=== PATIENT | male | born 1990 ===

== ENCOUNTER 2017-07-11 22:44 | Emergency (ER) | payer OTHER ==
[2017-07-11 23:26] LABS: ABS Basophils 0 10^3/ul (0-0.2); ABS Eosinophils 0.1 10^3/ul (0-0.6); ABS Lymphocytes 0.4 10^3/ul (1.0-4.8); ABS Monocytes 0.5 10^3/ul (0-0.8); ABS Neutrophils 7.9 10^3/ul (1.5-7.7); ABS Nucleated RBC 0 10^3/ul; Eosinophil % 1.2 % (0-6); Hematocrit 49 % (42-52); Hemoglobin 17.4 g/dl (14.0-18.0); Lymphocyte % 4.5 % (25-47); Mean Corpuscular HGB Conc 36 g/dl (31-36); Mean Corpuscular Hemoglobin 31 pg (27-31); Mean Corpuscular Volume 88 fL (80-94); Mean Platelet Volume 8.6 um3 (7.4-10.4); Nucleated Red Blood Cells % 0.2; Platelet Count 129 10^3/ul (150-450); Red Blood Count 5.59 10^6/ul (4.0-5.4); Red Cell Distribution Width 13 % (10.5-15)
[2017-07-11] MEDS ORDERED: Ondansetron ODT TAB* 4 MG PO ONE (23:33)
[2017-07-11 23:39] LABS: EGFR Non-African American 61.8 (>60)
[2017-07-12] MEDS ORDERED: O ndansetron ODT 4MG 2TAB PRPK 4 MG PAK PO ONE (00:30)
--- NOTE | 2017-07-12 00:30 | ED ---
GI/ HPI - HPI Summary HPI Summary: 26-year-old male presents with vomiting blood today. He states he's been vomiting a couple times today. He states that he had an episode where he vomited some blood which was just some streaks. He denies any history of ibuprofen use. He only drinks once a week. He's never had this symptoms before. He denies any history of GERD. Denies any fevers. He has occasional mild epigastric pain. Denies any diarrhea. States the vomited once in ED and now is no longer nauseous with no blood in the vomit. He states he did not eat anything different. No one else is sick. He denies any chest pain shortness breath. Denies any cough. - History of Current Complaint Chief Complaint: EDNauseaVomitDiarrh Time Seen by Provider: 07/12/17 00:22 Stated Complaint: VOMITING BLOOD Pain Intensity: 2 - Allergy/Home Medications Allergies/Adverse Reactions: Allergies Allergy/AdvReac Type Severity Reaction Status Date / Time Penicillins Allergy Rash And Verified 07/11/17 23:00 Itching Home Medications: Home Medications NK [No Home Medications Reported] 07/12/17 [History Confirmed 07/12/17] PMH/Surg Hx/FS Hx/Imm Hx Infectious Disease History: No Infectious Disease History: Denies: Traveled Outside the [place] in Last 30 Days Review of Systems Negative: Fever Negative: Chest Pain Negative: Shortness Of Breath Positive: Abdominal Pain, Vomiting, Nausea, Other - blood in vomit. Negative: Diarrhea All Other Systems Reviewed And Are Negative: Yes Physical Exam Triage Information Reviewed: Yes Vital Signs On Initial Exam: Initial Vitals Temp Pulse Resp BP Pulse Ox 99.2 F 105 16 118/83 99 07/11/17 22:57 07/11/17 22:57 07/11/17 22:57 07/11/17 22:57 07/11/17 22:57 Vital Signs Reviewed: Yes Appearance: Positive: Well-Appearing Skin: Positive: Warm, Dry Head/Face: Positive: Normal Head/Face Inspection Eyes: Positive: Normal, EOMI, DEMETRIS, Conjunctiva Clear ENT: Positive: Normal ENT inspection, Pharynx normal, TMs normal Respiratory/Lung Sounds: Positive: Clear to Auscultation, Breath Sounds Present Cardiovascular: Positive: Normal, RRR Abdomen Description: Positive: Nontender, Soft Bowel Sounds: Positive: Present Musculoskeletal: Positive: Normal Neurological: Positive: Normal Psychiatric: Positive: Normal Diagnostics - Vital Signs Vital Signs Temp Pulse Resp BP Pulse Ox 07/11/17 22:57 99.2 F 105 16 118/83 99 - Laboratory Lab Results: Lab Results 07/11/17 07/11/17 07/11/17 Range/Units 23:12 23:12 23:12 WBC 9.0 (3.5-10.8) 10^3/ul RBC 5.59 H (4.0-5.4) 10^6/ul Hgb 17.4 (14.0-18.0) g/dl Hct 49 (42-52) % MCV 88 (80-94) fL MCH 31 (27-31) pg MCHC 36 (31-36) g/dl RDW 13 (10.5-15) % Plt Count 129 L (150-450) 10^3/ul MPV 8.6 (7.4-10.4) um3 Neut % (Auto) 88.2 H (38-83) % Lymph % (Auto) 4.5 L (25-47) % [place] % (Auto) 5.8 (0-7) % Eos % (Auto) 1.2 (0-6) % Baso % (Auto) 0.3 (0-2) % Absolute Neuts (auto) 7.9 H (1.5-7.7) 10^3/ul Absolute Lymphs (auto) 0.4 L (1.0-4.8) 10^3/ul Absolute Monos (auto) 0.5 (0-0.8) 10^3/ul Absolute Eos (auto) 0.1 (0-0.6) 10^3/ul Absolute Basos (auto) 0 (0-0.2) 10^3/ul Absolute Nucleated RBC 0 10^3/ul Nucleated RBC % 0.2 Sodium 139 (139-145) mmol/L Potassium 4.1 (3.5-5.0) mmol/L Chloride 102 (101-111) mmol/L Carbon Dioxide 25 (22-32) mmol/L Anion Gap 12 H (2-11) mmol/L BUN 27 H (6-24) mg/dL Creatinine 1.39 H (0.67-1.17) mg/dL Est GFR ( Amer) 79.4 (>60) Est GFR (Non-Af Amer) 61.8 (>60) BUN/Creatinine Ratio 19.4 (8-20) Glucose 117 H (70-100) mg/dL Lactic Acid 0.8 (0.5-2.0) mmol/L Calcium 9.6 (8.6-10.3) mg/dL Total Bilirubin 1.30 H (0.2-1.0) mg/dL AST 17 (13-39) U/L ALT 28 (7-52) U/L Alkaline Phosphatase 44 (34-104) U/L C-Reactive Protein 10.18 H (< 5.00) mg/L Total Protein 7.6 (6.4-8.9) g/dL Albumin 4.7 (3.2-5.2) g/dL Globulin 2.9 (2-4) g/dL Albumin/Globulin Ratio 1.6 (1-3) Lipase 17 (11.0-82.0) U/L Result Diagrams: 07/11/17 23:12 07/11/17 23:12 Lab Statement: Any lab studies that have been ordered have been reviewed, and results considered in the medical decision making process. GIGU Course/Dx - Course Course Of Treatment: 26-year-old male presents with vomiting blood today. He states he's been vomiting a couple times today. He states that he had an episode where he vomited some blood which was just some streaks. He denies any history of ibuprofen use. He only drinks once a week. He's never had this symptoms before. He denies any history of GERD. Denies any fevers. He has occasional mild epigastric pain. Denies any diarrhea. States the vomited once in ED and now is no longer nauseous with no blood in the vomit. He states he did not eat anything different. No one else is sick. He denies any chest pain shortness breath. Denies any cough. On exam nontender abdomen. Lab work within normal limits. We'll give nausea medication. Told to take Pepcid. Patient understands and agrees with plan. - Diagnoses Differential Diagnoses - Male: Esophagitis/Gastritis, Gastroenteritis (Viral), Vomiting Provider Diagnoses: Vomiting blood Discharge - Sign-Out/Discharge Documenting (check all that apply): Discharge/Admit/Transfer - Discharge Plan Condition: Good Disposition: HOME Patient Education Materials: Acute Nausea and Vomiting (ED) Referrals: [facility] - Charles REYES [Primary Care Provider] - Additional Instructions: Can take Zofran every 6 hours as needed for nausea Take take pepcid twice a day for stomach pain Drink small amounts of fluid as tolerated When able to eat follow BRAT diet: Bananas, rice, applesauce, toast Take Tylenol for pain as needed every 6 hours Follow up with primary within 5 days Return to ED if develop fever that does not respond to Tylenol or ibuprofen, severe abdominal pain, or any new or worsening symptoms - Billing Disposition and Condition Condition: GOOD Disposition: HOME
[2017-07-12 00:58] VITALS: BP 118/89
== END 2017-07-12 00:55 | disposition home or self-care (01) ==
LOC: ED 22:44
DX: K92.0 Hematemesis (principal); R11.2 Nausea with vomiting, unspecified; R10.9 Unspecified abdominal pain
CPT/HCPCS: 36415; 80053; 83605; 83690; 85025; 86140; 99282; A9270-GY

== ENCOUNTER 2018-09-05 02:16 | Emergency (ER) | payer OTHER ==
--- NOTE | 2018-09-05 02:23 | ED ---
Substance Abuse/Use - HPI Summary HPI Summary: This pt is a 28 y/o male presenting to [facility] via policewoman for substance use. Police report they were patrolling around the [place] when they saw the pt trying to fight with some people. Patient also attempted to fight with the police. Patient presents to the ED in handcuffs. He is uncooperative and combative. HPI IS LIMITED DUE TO LEVEL 5 CAVEAT - pt is uncooperative and combative - History Of Current Complaint Stated Complaint: 2209 PER EMS Hx Obtained From: Other: - Police Hx From Patient Unobtainable Due To: Other - LEVEL 5 CAVEAT - pt is uncooperative and combative Ingestion History: Type/Name Of Drug - alcohol Severity Currently: Severe Character: Stuporous Aggravating Factor(s): Other - unknown Alleviating Factor(s): Other - unknown Associated Signs And Symptoms: Intentional Ingestion - Allergies/Home Medications Allergies/Adverse Reactions: Allergies Allergy/AdvReac Type Severity Reaction Status Date / Time Penicillins Allergy Rash And Verified 07/11/17 23:00 Itching PMH/Surg Hx/FS Hx/Imm Hx Previously Healthy: No - Unknown due to level 5 caveat - uncooeprative - Immunization History Date of Tetanus Vaccine: utd Date of Influenza Vaccine: none - Family History Known Family History: Positive: Unknown - LEVEL 5 CAVEAT - pt is uncooperative - Social History Alcohol Use: Weekly Alcohol Amount: once a week Substance Use Type: Reports: None Smoking Status (MU): Former Smoker Review of Systems - ROS Summary Review of Systems Summary: ROS IS LIMITED DUE TO LEVEL 5 CAVEAT - pt is uncooperative and combative Negative: Fever Psychological: Other - POSITIVE: combative All Other Systems Reviewed And Are Negative: No Physical Exam - Summary Physical Exam Summary: VITAL SIGNS: Reviewed. GENERAL: Patient is a well-developed and nourished male. HEAD AND FACE: No signs of trauma. No ecchymosis, hematomas or skull depressions. No sinus tenderness. EYES: PERRLA, EOMI x 2, No injected conjunctiva, no nystagmus. EARS: Hearing grossly intact. Ear canals and tympanic membranes are within normal limits. MOUTH: Oropharynx within normal limits. NECK: Supple, trachea is midline, no adenopathy, no JVD, no carotid bruit, no c- spine tenderness, neck with full ROM. CHEST: Symmetric, no tenderness at palpation LUNGS: Clear to auscultation bilaterally. No wheezing or crackles. CVS: Regular rate and rhythm, S1 and S2 present, no murmurs or gallops appreciated. ABDOMEN: Soft, non-tender. No signs of distention. No rebound no guarding, and no masses palpated. Bowel sounds are normal. EXTREMITIES: FROM in all major joints, no edema, no cyanosis or clubbing. NEURO: Alert and oriented x 3. No acute neurological deficits. SKIN: Dry and warm Triage Information Reviewed: Yes Vital Signs Reviewed: Yes Completion Of Physical Exam Limited Due To: Level 5 - pt is uncooperative Diagnostics - Laboratory Result Diagrams: 09/05/18 03:00 09/05/18 03:00 Lab Statement: Any lab studies that have been ordered have been reviewed, and results considered in the medical decision making process. - CT Brain CT CT Interpretation Completed By: Radiologist Summary of CT Findings: IMPRESSION: No acute intracranial abnormality. Dr. Hinds has reviewed this report. Re-Evaluation - Re-Evaluation First Eval Re-Evaluation Time: 02:26 Comment: After handcuffs were removed, pt became combative. Pt will be chemically restrained. Second Eval Re-Evaluation Time: 02:35 Comment: Pt is yelling and being combative. Will administer 300 mg Ketamine IM. Course/Dx - Course Assessment/Plan: Pt is a 28 y/o male presenting to [facility] via policewoman for substance use. Police report they were patrolling around the [facility] when they saw the pt trying to fight with some people. Patient also attempted to fight with the police. Patient presents to the ED in handcuffs. After handcuffs were removed pt became combative. Pt was given Ativan, Haldol, and Benadryl as chemical restraint. He then began yelling and was more combative. Pt was given Ketamine IM. Blood work was obtained. Serum alcohol of 317. Brain CT shows no acute intracranial abnormality. Pt will be signed out to Dr. Heart pending sobriety. - Diagnoses Provider Diagnoses: Alcohol intoxication Discharge - Sign-Out/Discharge Documenting (check all that apply): Sign-Out Patient Signing out patient TO: Giuliano Heart - Pending sobriety Patient Received Moderate/Deep Sedation with Procedure: No - Discharge Plan Condition: Stable Referrals: [facility] - Charles REYES [Primary Care Provider] - - Attestation Statements Document Initiated by Scribe: Yes Documenting Scribe: Tracy Padilla Provider For Whom Scribe is Documenting (Include Credential): Tatiana Hinds MD Scribe Attestation: ITracy, scribed for Tatiana Hinds MD on 09/05/18 at 0704. Status of Scribe Document: Ready
[2018-09-05] MEDS ORDERED: Haloperidol INJ IV/IM* 5 MG/ML AMP IM ONE (02:26)
[2018-09-05] MEDS ORDERED: LORazepam INJ* 2 MG/ML 1 ML VIAL IM ONE (02:26)
[2018-09-05] MEDS ORDERED: diPHENhydraMINE IV* 50 MG/ML 1 ml VIAL (BENADRYL) IM ONE (02:26)
[2018-09-05] MEDS ORDERED: LORazepam INJ* 2 MG/ML 1 ML VIAL ONE (02:28)
[2018-09-05] MEDS ORDERED: KETAMINE HCL* 50 MG/ML 10 ML VIAL IM ONE (02:35)
[2018-09-05 03:11] LABS: ABS Basophils 0.1 10^3/ul (0-0.2); ABS Eosinophils 0.3 10^3/ul (0-0.6); ABS Lymphocytes 3.6 10^3/ul (1.0-4.8); ABS Monocytes 0.5 10^3/ul (0-0.8); ABS Neutrophils 3.9 10^3/ul (1.5-7.7); Eosinophil % 3.6 %; Hematocrit 41 % (42-52); Lymphocyte % 42.7 %; Mean Corpuscular HGB Conc 35 g/dL (31-36); Mean Corpuscular Hemoglobin 31 pg (27-31); Mean Corpuscular Volume 90 fL (80-94); Mean Platelet Volume 7.9 fL (7.4-10.4); Nucleated Red Blood Cells % 0.1; Platelet Count 231 10^3/uL (150-450); Red Cell Distribution Width 13 % (10-15); White Blood Count 8.3 10^3/uL (3.5-10.8)
[2018-09-05 03:26] LABS: ALT 40 U/L (7-52); Albumin 4.4 g/dL (3.2-5.2); Albumin/Globulin Ratio 1.5 (1-3); Alkaline Phosphatase 53 U/L (34-104); BUN/Creatinine Ratio 14.1 (8-20); Blood Urea Nitrogen 19 mg/dL (6-24); CO2 Carbon Dioxide 21 mmol/L (22-32); Calcium 8.7 mg/dL (8.6-10.3); Chloride 108 mmol/L (101-111); EGFR African American 76.1 (>60); EGFR Non-African American 62.9 (>60); Globulin 2.9 g/dL (2-4); Glucose 106 mg/dL (70-100); Sodium 142 mmol/L (135-145); Total Protein 7.3 g/dL (6.4-8.9)
[2018-09-05 03:33] LABS: Acetaminophen < 15 mcg/mL; Alcohol 317 mg/dL (<10); Salicylate < 2.50 mg/dL (<30)
[2018-09-05 03:49] LABS: TSH (Thyroid Stimulating Horm) 2.49 mcIU/mL (0.34-5.60)
[2018-09-05 04:09] LABS: AST 45 U/L (13-39); Anion Gap 13 mmol/L (2-11); Potassium 4.1 mmol/L (3.5-5.0)
--- NOTE | 2018-09-05 07:18 | ED ---
Progress - Progress Note Progress Note: This patient is a sign-out from Dr. Tatiana Hinds to Dr. Giuliano Heart at shift change on 09/05/2018 at 0700 pending substance metabolism. Re-Evaluation - Re-Evaluation First Eval Re-Evaluation Time: 12:53 Comment: Patient has motor control. Therefore he will be discharged home with dx of alcohol intoxication. Patient understands and agrees with this plan. Second Eval Re-Evaluation Time: 02:35 Comment: Pt is yelling and being combative. Will administer 300 mg Ketamine IM. Course/Dx - Course Course Of Treatment: This patient is a sign-out from Dr. Tatiana Hinds to Dr. Giuliano Heart at shift change on 09/05/2018 at 0700 pending substance metabolism. Patient has achieved sobriety and passes road test at 1253. Therefore, he will be discharged home with dx of alcohol intoxication. Patient understands and agrees with this plan. - Diagnoses Provider Diagnoses: Alcohol intoxication Discharge - Sign-Out/Discharge Documenting (check all that apply): Patient Departure - Discharge Patient Received Moderate/Deep Sedation with Procedure: No - Discharge Plan Condition: Stable Disposition: HOME Patient Education Materials: Alcohol Intoxication (ED), Abuse of Alcohol (ED) Referrals: [facility] - Charles REYES [Primary Care Provider] - 3 Days Additional Instructions: Follow up with your primary care provider in three days. RETURN TO THE ER FOR WORSENING OR CHANGING SYMPTOMS. - Billing Disposition and Condition Condition: STABLE Disposition: Home - Attestation Statements Document Initiated by Scribe: Yes Documenting Scribe: Leonardo Baker Provider For Whom Rachel is Documenting (Include Credential): Giuliano Heart MD Scribe Attestation: Leonardo Price, scribed for Giuliano Heart MD on 09/05/18 at 1300. Scribe Documentation Reviewed: Yes Provider Attestation: The documentation as recorded by the Leonardo noel accurately reflects the service I personally performed and the decisions made by , Giuliano Heart MD Status of Scribe Document: Viewed
[2018-09-05 12:55] VITALS: BP 117/74
== END 2018-09-05 13:20 | disposition home or self-care (01) ==
LOC: ED 02:16
DX: F10.929 Alcohol use, unspecified with intoxication, unspecified (principal); Z87.891 Personal history of nicotine dependence
CPT/HCPCS: 36415; 70450; 80053; 80320; 80329; 84443; 85025; 96372; 99285; G0480; J1200; J1630; J2060